=== PATIENT | male | born 1980 | race Caucasian/White ===

== ENCOUNTER 2019-08-02 13:18 | Emergency (ER) | payer BC, OTHER ==
[~2019-08-02] VITALS: Ht 177.8 cm; Wt 74.8 kg
[2019-08-02] MEDS ORDERED: FLEXERIL PO (14:10)
[2019-08-02] MEDS ORDERED: NORCO 5-325 TA1 EAC1 PO (14:11)
[2019-08-02 16:31] VITALS: BP 123/80
[2019-08-02] MEDS ORDERED: NORFLEX100 MG PO (16:38)
[2019-08-02] MEDS ORDERED: NAPROSYN500 MG PO (16:38)
== END 2019-08-02 16:38 | disposition home or self-care (01) ==
LOC: ER 13:18
DX: S39.012A Strain of muscle, fascia and tendon of lower back, initial encounter (principal); Z88.1 Allergy status to other antibiotic agents; Z88.0 Allergy status to penicillin; X50.0XXA Overexertion from strenuous movement or load, initial encounter; Y92.89 Other specified places as the place of occurrence of the external cause; Y93.89 Activity, other specified; Y99.8 Other external cause status